=== PATIENT | male | born 1965 | race Caucasian/White ===

== ENCOUNTER 2016-11-09 10:43 | Observation (INO) | payer BC, OTHER ==
[~2016-11-09] VITALS: Ht 180.3 cm; Wt 91.3 kg
[~2016-11-09 10:43] MED LIST: META1TAB22 PO; TRAM-10 PO; norco
[2016-11-09] MEDS ORDERED: ASPIRIN 81 MG CHEW PO STA (11:28)
[2016-11-09] MEDS ORDERED: PANTOprazole SOD 40 MG TAB PO STA (11:28)
[2016-11-09 11:42] LABS: BASO % 0.3 %; BASO ABS # 0.03 K/uL (0-0.2); COMPLETE YES; EOS % 2.7 %; HEMATOCRIT 44.6 % (42-52); IG% 0.8 %; LYMPH % 28.1 %; LYMPH ABS # 3.07 K/uL (1.2-3.4); MEAN CELL VOLUME 90.5 fL (80-100); MEAN CORPUSCULAR HEMOGLOBIN 31.4 pg (25-34); MEAN CORPUSCULAR HGB CONC 34.8 g/dl (32-36); MEAN PLATELET VOLUME 10.8 fL (7.4-10.4); MONO % 11.6 %; NEUT % 56.5 %; PLATELET COUNT 230 K/uL (130-400); RED BLOOD COUNT 4.93 M/uL (4.7-6.1); WHITE BLOOD COUNT 10.94 K/uL (4.8-10.8)
--- NOTE | 2016-11-09 11:49 | EMERGENCY ROOM VISIT NOTE ---
History Report prepared by Deanna: Ildefonso Montes Under the Supervision of: Dr. Anatoliy Perez D.O. First contact with patient: 11:23 Chief Complaint: SHORTNESS OF BREATH Stated Complaint: SOB Nursing Triage Summary: pt c/o sob strated approx 2 weeks ago agter last snow intermittent and worsens with exertion feels in back and chest when takes deep breath states chest pain after eating with relieved with antiacid History of Present Illness The patient is a 51 year old male who presents to the Emergency Room with complaints of on and off shortness of breath for the past two weeks. The patient states that two weeks ago he was shoveling snow, and he had shortness of breath more than usual. The he states that a few days ago he was working outside, and he got short of breath, and he states that last night he was just watching TV, and he would have to take deep breaths every couple of minutes. He states that he has some chest discomfort usually after eating, however when he takes Tums the pain goes away quickly. He additionally states that he has some back discomfort. He denies any arm pain, leg pain or swelling., abdominal pain, nausea, and vomiting. The patient states that his head feels stuffy. The patient states that he currently smokes about 5 cigarettes per day. The patient denies any significant medical history, and he states that he has a surgical history of back surgery, and he does not have a family history of heart disease. Source of History: patient Onset: two weeks ago Timing: other (on and off) Modifying Factors (Worsening): exertion Associated Symptoms: + chest pain, No abdominal pain, No nausea, No vomiting Review of Systems See HPI for pertinent positives & negatives. A total of 10 systems reviewed and were otherwise negative. Past Medical & Surgical Medical Problems: (1) Skin carcinoma Surgical Problems: (1) H/O arthroscopy of left knee (2) H/O laminectomy Family History Cancer Social History Smoking Status: Current Every Day Smoker Marital Status: Housing Status: lives with family Occupation Status: employed Current/Historical Medications No Active Prescriptions or Reported Meds Allergies Coded Allergies: No Known Allergies (Unverified , 11/09/16) Physical Exam Vital Signs Date Time Temp Pulse Resp B/P Pulse Ox O2 Delivery O2 Flow Rate FiO2 11/09/16 13:09 37.0 18 114/79 Room Air 11/09/16 12:56 53 18 114/79 98 Room Air 11/09/16 11:48 53 11/09/16 11:32 96 Room Air 11/09/16 11:30 58 16 143/68 96 Room Air 11/09/16 11:25 96 Room Air 11/09/16 11:05 97 Room Air 11/09/16 11:05 37.0 60 18 133/83 97 Room Air Physical Exam GENERAL: Patient is awake, alert, and in no acute distress. Patient is resting comfortably and showing no signs of anxiety EYES: The conjunctivae are clear. The pupils are round and reactive. EARS, NOSE, MOUTH AND THROAT: The nose is without any evidence of any deformity. Mucous membranes are moist tongue is midline NECK: The neck is nontender and supple. RESPIRATORY: Normal respiratory effort is noted there is no evidence of wheezing rhonchi or rales CARDIOVASCULAR: Regular rate and rhythm noted there no murmurs rubs or gallops normal S1 normal S2 GASTROINTESTINAL: The abdomen is soft. Bowel sounds are present in all quadrants. Abdomen is nontender MUSCULOSKELETAL/EXTREMITIES: There is no evidence of gross deformity full range of motion is noted in the hips and shoulders SKIN: There is no obvious evidence of any rash. There are no petechiae, pallor or cyanosis noted. NEUROLOGIC: Patient is awake alert and oriented x3 Medical Decision & Procedures ER Provider Diagnostic Interpretation: X-ray results as stated below per interpretation by me and the radiologist. CHEST ONE VIEW PORTABLE CLINICAL HISTORY: Shortness of breath, respiratory distress. COMPARISON STUDY: 11/11/2013 FINDINGS: The cardiac and mediastinal contours are normal. There is no evidence of focal pulmonary consolidation. There is no evidence of failure. No pleural effusions are visualized.[ IMPRESSION: No active disease in the chest. Electronically signed by: Yobani Wolff M.D. 11/09/2016 11:56 AM Dictated Date/Time: 11/09/2016 11:56 AM Laboratory Results 11/09/16 11:25 Red Blood Count 4.93, Mean Corpuscular Volume 90.5, Mean Corpuscular Hemoglobin 31.4, Mean Corpuscular Hemoglobin Concent 34.8, Mean Platelet Volume 10.8, Neutrophils (%) (Auto) 56.5, Lymphocytes (%) (Auto) 28.1, Monocytes (%) (Auto) 11.6, Eosinophils (%) (Auto) 2.7, Basophils (%) (Auto) 0.3, Neutrophils # (Auto ) 6.19, Lymphocytes # (Auto) 3.07, Monocytes # (Auto) 1.27, Eosinophils # (Auto ) 0.29, Basophils # (Auto) 0.03 11/09/16 11:25 Test 11/09/16 11:25 White Blood Count 10.94 K/uL (4.8-10.8) Red Blood Count 4.93 M/uL (4.7-6.1) Hemoglobin 15.5 g/dL (14.0-18.0) Hematocrit 44.6 % (42-52) Mean Corpuscular Volume 90.5 fL (80-100) Mean Corpuscular Hemoglobin 31.4 pg (25-34) Mean Corpuscular Hemoglobin Concent 34.8 g/dl (32-36) Platelet Count 230 K/uL (130-400) Mean Platelet Volume 10.8 fL (7.4-10.4) Neutrophils (%) (Auto) 56.5 % Lymphocytes (%) (Auto) 28.1 % Monocytes (%) (Auto) 11.6 % Eosinophils (%) (Auto) 2.7 % Basophils (%) (Auto) 0.3 % Neutrophils # (Auto) 6.19 K/uL (1.4-6.5) Lymphocytes # (Auto) 3.07 K/uL (1.2-3.4) Monocytes # (Auto) 1.27 K/uL (0.11-0.59) Eosinophils # (Auto) 0.29 K/uL (0-0.5) Basophils # (Auto) 0.03 K/uL (0-0.2) RDW Standard Deviation 42.4 fL (36.4-46.3) RDW Coefficient of Variation 12.9 % (11.5-14.5) Immature Granulocyte % (Auto) 0.8 % Immature Granulocyte # (Auto) 0.09 K/uL (0.00-0.02) Prothrombin Time 10.1 SECONDS (9.0-12.0) Prothromb Time International Ratio 0.9 (0.9-1.1) Activated Partial Thromboplast Time 27.7 SECONDS (21.0-31.0) Partial Thromboplastin Ratio 1.1 Anion Gap 9.0 mmol/L (3-11) Est Creatinine Clear Calc Drug Dose 101.7 ml/min Estimated GFR () 100.6 Estimated GFR (Non- 86.8 BUN/Creatinine Ratio 14.8 (10-20) Calcium Level 9.1 mg/dl (8.5-10.1) Total Bilirubin 0.5 mg/dl (0.2-1) Aspartate Amino Transf (AST/SGOT) 14 U/L (15-37) Alanine Aminotransferase (ALT/SGPT) 26 U/L (12-78) Alkaline Phosphatase 59 U/L (45-117) Total Protein 7.4 gm/dl (6.4-8.2) Albumin 3.7 gm/dl (3.4-5.0) Globulin 3.7 gm/dl (2.5-4.0) Albumin/Globulin Ratio 1.0 (0.9-2) Laboratory results per my review. Medications Administered Medications (Trade) Dose Ordered Sig/Evan Route Start Time Stop Time Status Last Admin Dose Admin Aspirin (Aspirin Chew) 324 mg NOW STAT PO 11/09/16 11:28 11/09/16 11:30 DC 11/09/16 11:36 324 MG Pantoprazole Sodium (Protonix Tab) 40 mg NOW STAT PO 11/09/16 11:28 11/09/16 11:30 DC 11/09/16 11:36 40 MG ECG Indication: chest pain Rate (beats per minute): 53 Rhythm: sinus bradycardia Findings: no ectopy, other (Inferior T-wave abnormality noted) Comparison ECG Date: 10/22/13 Change: T wave abnormality is new ED Course 1127: The patient was evaluated in room B5. A complete history and physical examination were performed. 1128: Protonix Tab 40mg PO, Aspirin 324mg PO 1218: I discussed the patient's case with Dr. Roa. He is going to evaluate the patient for further treatment Medical Decision Differential diagnosis: Etiologies such as cardiac ischemia, aortic dissection, pulmonary embolism, pneumonia, pneumothorax, musculoskeletal, infections, pericarditis, myocarditis , esophageal rupture, gastrointestinal, as well as others were entertained. Nursing notes reviewed. The patient is a 51-year-old male who presented to the emergency department for an evaluation of dyspnea on exertion. The patient also started noticing some chest discomfort with exertion but felt that this was relieved with antacids. The patient does not have a cardiac history. At this time he is pain-free. His EKG showed mild ST abnormalities. He was treated with aspirin in the emergency department. He continued to be pain-free I discussed the patient's laboratory and radiographic studies with him. His cardiac biomarkers were negative. I also discussed the limitations of the emergency apartment workup for chest pain with him. I discussed his case with the on-call [facility] hospitalist group. They have agreed to evaluate the patient in the emergency department for further management and disposition. Given the patient's description of his discomfort as well as his exertional symptoms I do feel this has a high likelihood of being cardiac in nature. Consults Time Called: 1214 Consulting Physician: Dr. Roa Returned Call: 1218 I discussed the patient's case with Dr. Roa. He is going to evaluate the patient for further treatment Impression Primary Impression: Left sided chest pain Additional Impressions: Dyspnea on exertion Abnormal ECG Scribe Attestation The scribe's documentation has been prepared under my direction and personally reviewed by me in its entirety. I confirm that the note above accurately reflects all work, treatment, procedures, and medical decision making performed by me. Departure Information Dispostion Being Evaluated By Hospitalist Prescriptions No Active Prescriptions or Reported Meds Referrals No Doctor, Assigned (PCP) Problem Qualifiers
--- NOTE | 2016-11-09 11:58 | DIAGNOSTIC IMAGING REPORT ---
CHEST ONE VIEW PORTABLE CLINICAL HISTORY: Shortness of breath, respiratory distress. COMPARISON STUDY: 11/11/2013 FINDINGS: The cardiac and mediastinal contours are normal. There is no evidence of focal pulmonary consolidation. There is no evidence of failure. No pleural effusions are visualized.[ IMPRESSION: No active disease in the chest. Electronically signed by: Yobani Wolff M.D. 11/09/2016 11:56 AM Dictated Date/Time: 11/09/2016 11:56 AM
[2016-11-09 12:00] LABS: INR 0.9 (0.9-1.1); PARTIAL THROMBOPLASTIN RATIO 1.1; PROTHROMBIN TIME (PATIENT) 10.1 SECONDS (9.0-12.0)
[2016-11-09 12:05] LABS: ALT/SGPT 26 U/L (12-78); AST/SGOT 14 U/L (15-37); BLOOD UREA NITROGEN 15 mg/dl (7-18); BUN/CREATININE RATIO 14.8 (10-20); CALCIUM 9.1 mg/dl (8.5-10.1); CARBON DIOXIDE 24 mmol/L (21-32); CHLORIDE 105 mmol/L (98-107); GLUCOSE 85 mg/dl (70-99); POTASSIUM 4.2 mmol/L (3.5-5.1); SODIUM 138 mmol/L (136-145)
[2016-11-09 12:09] LABS: ALKALINE PHOSPHATASE 59 U/L (45-117)
[2016-11-09 13:09] VITALS: BP 114/79; TEMP 37; Ht 180.3 cm; Wt 91.3 kg
[2016-11-09] MEDS ORDERED: ONDANSETRON INJ 2 MG/ML 2 ML VIAL IV PRN (13:45)
[2016-11-09] MEDS ORDERED: ACETAMINOPHEN 325 MG TAB PO PRN (13:45)
[2016-11-09] MEDS ORDERED: NITROGLYCERIN 0.4 MG SL PER TAB CHARGE SL PRN (13:45)
[2016-11-09] MEDS ORDERED: INFLUENZA ADMINISTRATION CHARGE ONE (14:15)
[2016-11-09] MEDS ORDERED: IV FLUIDS COMPLETED PRN (14:15)
[2016-11-09] MEDS ORDERED: INFLUENZA VIRUS QUAD VACCINE 0.5 ML SYR IM. ONE (14:15)
[2016-11-09 15:20] VITALS: BP 121/75; PULSE 55; TEMP 37; O2SAT 95
[2016-11-09 15:44] VITALS: BP 120/74; PULSE 83; TEMP 36.9; O2SAT 94
--- NOTE | 2016-11-09 16:12 | History and Physical ---
History & Physical Date & Time of Service: Nov 09, 2016 at 15:36 Chief Complaint: Shortness of Breath on Exertion Primary Care Physician: Will Chamorro M.D. History of Present Illness 51 year old male who presents to the ER with shortness of breath on exertion. Patient reports he first noted the shortness of breath about two weeks ago when he shoveling snow. 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 He reports he has never felt short of breath with exertion before. He notes the shortness of breath has been progressively getting worse. He is now short of breath with climbing a flight of stairs. He reports two episodes of chest pain. He reports they were located in the lower left chest and were both after eating. TUMS resolved the discomfort. He denies chest pain associated with the exertional shortness of breath. No lightheadedness, dizziness, or diaphoresis. He denies abdominal pain , nausea, and vomiting. No fever or chills. He denies any urinary symptoms. In the ER, patient's initial troponin is negative and EKG does not show any acute ST changes. Labs are unremarkable and vitals are stable. Past Medical/Surgical History Surgical Problems: (1) H/O arthroscopy of left knee Status: Chronic (2) H/O laminectomy Status: Chronic Family History FH: alpha 1 antitrypsin deficiency FATHER Social History Smoking Status: Current Every Day Smoker Alcohol Use: occasionally Immunizations History of Tetanus Vaccine?: Yes Tetanus Immunization Date: Sep 09, 2014 Multi-Drug Resistant Organisms History of MDRO: No Allergies Coded Allergies: No Known Allergies (Unverified , 11/09/16) Home Medications No Active Prescriptions or Reported Meds Review of Systems 10 point review of systems was completed with the pertinent positives and negatives noted per the HPI Physical Exam Vital Signs Date Time Temp Pulse Resp B/P Pulse Ox O2 Delivery O2 Flow Rate FiO2 11/09/16 15:21 37.0 55 18 121/75 95 11/09/16 15:20 37.0 55 18 95 11/09/16 14:05 55 18 121/75 95 Room Air 11/09/16 13:09 37.0 18 114/79 Room Air 11/09/16 12:56 53 18 114/79 98 Room Air 11/09/16 11:48 53 11/09/16 11:32 96 Room Air 11/09/16 11:30 58 16 143/68 96 Room Air 11/09/16 11:25 96 Room Air 11/09/16 11:05 97 Room Air 11/09/16 11:05 37.0 60 18 133/83 97 Room Air General Appearance: no apparent distress Head: normocephalic Eyes: normal inspection ENT: hearing grossly normal Neck: supple, no JVD Respiratory/Chest: lungs clear, normal breath sounds, no respiratory distress Cardiovascular: regular rate, rhythm, no edema, normal peripheral pulses Abdomen/GI: normal bowel sounds, non tender, soft Extremities/Musculoskelatal: normal inspection, no calf tenderness Neurologic/Psych: no motor/sensory deficits, alert, normal mood/affect, oriented x 3 Skin: normal color, warm/dry Diagnostics Laboratory Results Results Past 24 Hours Test 11/09/16 11:25 Range/Units White Blood Count 10.94 4.8-10.8 K/uL Red Blood Count 4.93 4.7-6.1 M/uL Hemoglobin 15.5 14.0-18.0 g/dL Hematocrit 44.6 42-52 % Mean Corpuscular Volume 90.5 80-100 fL Mean Corpuscular Hemoglobin 31.4 25-34 pg Mean Corpuscular Hemoglobin Concent 34.8 32-36 g/dl Platelet Count 230 130-400 K/uL Mean Platelet Volume 10.8 7.4-10.4 fL Neutrophils (%) (Auto) 56.5 % Lymphocytes (%) (Auto) 28.1 % Monocytes (%) (Auto) 11.6 % Eosinophils (%) (Auto) 2.7 % Basophils (%) (Auto) 0.3 % Neutrophils # (Auto) 6.19 1.4-6.5 K/uL Lymphocytes # (Auto) 3.07 1.2-3.4 K/uL Monocytes # (Auto) 1.27 0.11-0.59 K/uL Eosinophils # (Auto) 0.29 0-0.5 K/uL Basophils # (Auto) 0.03 0-0.2 K/uL RDW Standard Deviation 42.4 36.4-46.3 fL RDW Coefficient of Variation 12.9 11.5-14.5 % Immature Granulocyte % (Auto) 0.8 % Immature Granulocyte # (Auto) 0.09 0.00-0.02 K/uL Prothrombin Time 10.1 9.0-12.0 SECONDS Prothromb Time International Ratio 0.9 0.9-1.1 Activated Partial Thromboplast Time 27.7 21.0-31.0 SECONDS Partial Thromboplastin Ratio 1.1 Sodium Level 138 136-145 mmol/L Potassium Level 4.2 3.5-5.1 mmol/L Chloride Level 105 98-107 mmol/L Carbon Dioxide Level 24 21-32 mmol/L Anion Gap 9.0 3-11 mmol/L Blood Urea Nitrogen 15 7-18 mg/dl Creatinine 1.00 0.60-1.40 mg/dl Est Creatinine Clear Calc Drug Dose 101.7 ml/min Estimated GFR () 100.6 Estimated GFR (Non- 86.8 BUN/Creatinine Ratio 14.8 10-20 Random Glucose 85 70-99 mg/dl Calcium Level 9.1 8.5-10.1 mg/dl Total Bilirubin 0.5 0.2-1 mg/dl Aspartate Amino Transf (AST/SGOT) 14 15-37 U/L Alanine Aminotransferase (ALT/SGPT) 26 12-78 U/L Alkaline Phosphatase 59 45-117 U/L Troponin I < 0.015 0-0.045 ng/ml Total Protein 7.4 6.4-8.2 gm/dl Albumin 3.7 3.4-5.0 gm/dl Globulin 3.7 2.5-4.0 gm/dl Albumin/Globulin Ratio 1.0 0.9-2 Diagnostic Radiology CXR IMPRESSION: No active disease in the chest. Impression Assessment and Plan DYSPNEA ON EXERTION - admit to tele - patient presenting with increasing dyspnea on exertion for the past two weeks - had a couple episodes of atypical chest pain relieved with TUMS - risk factors: tobacco use - initial troponin negative, EKG shows new T-wave inversions in lead III and new downward deflection in III and AVF - resting echo tonight and if no acute findings, will complete stress portion in AM DVT PROPHYLAXIS - SCDs DISPO - The patient will be placed as observation status for now until further work up is complete. 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 Y/N: Yes Risk Level: Low Note ATTENDING ADDENDUM Record reviewed. Patient interviewed and examined. Care coordinated with SMITA Velasco. Please refer to her documentation for patient's history. Briefly, 51 YO male experiencing worsening dyspnea on exertion over past few weeks. No history of cardiovascular disease. Smokes. 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 EXAM: General- no distress VS- as noted Neck- no JVD Lungs- clear Heart- RRR, no murmur or gallop Abdomen- + BS, soft, nontender Extremities- no pretibial edema or calf tenderness Neuro- alert DATA: Troponin < 0.015. Other lab studies as noted. Chest x-ray negative. EKG performed at 11:18 reviewed and demonstrated SB at 53 / minute, inverted T- waves III. ASSESSMENT AND PLAN: Recent onset dyspnea on exertion, etiology uncertain. Consider ischemic heart disease, cardiomyopathy, pulmonary disease. Check serial cardiac markers and lipids. Check rest echo. If acute NV ruled out, check stress echo. If cardiac work-up unrevealing, consider outpatient PFT's. Smoking cessation counseling. Please refer to JEREMY Barahona's documentation for discussion of other issues. Isaiah Roa MD .
[2016-11-09 19:24] VITALS: BP 134/77; PULSE 58; TEMP 37.3; O2SAT 98
[2016-11-09 20:05] VITALS: O2SAT 98
[2016-11-09 23:06] VITALS: BP 117/76; PULSE 55; TEMP 37; O2SAT 97
[2016-11-10 04:00] VITALS: BP 108/68; PULSE 55; TEMP 37; O2SAT 96
[2016-11-10 07:45] LABS: HEMATOCRIT 44.9 % (42-52); MEAN CORPUSCULAR HGB CONC 34.7 g/dl (32-36); MEAN PLATELET VOLUME 10.8 fL (7.4-10.4); PLATELET COUNT 204 K/uL (130-400); RED BLOOD COUNT 4.88 M/uL (4.7-6.1); WHITE BLOOD COUNT 10.63 K/uL (4.8-10.8)
[2016-11-10 08:03] VITALS: BP 109/68; PULSE 55; TEMP 36.6; O2SAT 97
[2016-11-10 08:28] LABS: BUN/CREATININE RATIO 17.8 (10-20); CALCIUM 8.6 mg/dl (8.5-10.1); CREATININE 0.95 mg/dl (0.60-1.40); POTASSIUM 4.1 mmol/L (3.5-5.1)
[2016-11-10 08:34] LABS: CHOLESTEROL/HDL RATIO 3.7
[2016-11-10] MEDS ORDERED: ASPIRIN 81 MG ECTAB PO SCH (09:00)
--- NOTE | 2016-11-10 09:51 | EXERCISE STRESS ECHO ---
*NOTICE TO RECEIVING REPUBLICAN AGENCY This information is strictly Confidential and protected under [place] law. [place] law prohibits you from making any further disclosure of this information unless further disclosure is expressly permitted by the written consent of the person to whom it pertains or is authorized by law. A general authorization for the release of medical or other information is not sufficient for this purpose. Hospital accepts no responsibility if the information is made available to any other person, INCLUDING THE PATIENT. Interpretation Summary * Name: LUANNE VARELA Study Date: 11/10/2016 07:31 AM BP: 122/61 mmHg * Patient Location: [facility] HR: 54 * : 1965 (M/d/yyyy) Gender: Male Height: 71 in * Age: 51 yrs Ethnicity: CA Weight: 204 lb * Ordering Physician: Megan Barahona * Referring Physician: Self, Referred * Performed By: Leanna Varela RCS * * Reason For Study: CHEST PAIN * BSA: 2.1 m2 * -- Conclusions -- * STRESS STUDY: * Normal exercise stress echocardiogram. * No echocardiographic or ECG evidence of myocardial ischemia having achieved heart rate adequate for diagnostic purposes. * The patient's exercise capacity is above average. * RESTING STUDY: * There is no significant valvular heart disease. Procedure Details * ECHOEX, CPT #[id number] * ECHO COLOR FLOW, CPT #[id number] * ECHO DOPPLER, CPT #[id number] * TST, CPT #[id number] Left Ventricle * The left ventricle is normal in size. * There is no thrombus. * There is normal left ventricular wall thickness. * Left ventricular systolic function is normal. * Ejection Fraction = 55-60%. * Resting wall motion: Normal. Stress wall motion: Appropriate increase in Left ventricular systolic function and decrease in cavity size. No stress induced segmental wall motion abnormalities. Right Ventricle * The right ventricle is normal in size and function. Atria * The left atrial size is normal. * Right atrial size is normal. * No ASD detected; PFO is not assessed. Mitral Valve * The mitral valve is normal in structure and function. * There is no mitral valve stenosis. * Significant mitral regurgitation is absent. Tricuspid Valve * The tricuspid valve anatomy is normal. * There is no tricuspid stenosis. * Significant tricuspid regurgitation is absent. Aortic Valve * The aortic valve is normal in structure and function. * No hemodynamically significant valvular aortic stenosis. * There is no significant aortic regurgitation. Pulmonic Valve * The pulmonic valve is not well visualized. Great Vessels * The aortic root is normal size. Pericardium * There is no pericardial effusion. Stress Parameters * Normal baseline electrocardiogram. * The baseline ECG displays normal sinus rhythm. * The stress ECG response was normal * No arrhythmia were noted with stress. * Stress ECG: No ST changes. No arrhythmias. * The stress portion of this study was personally supervised by the undersigned interpreting physician. * Rest heart rate was '54' BPM. * Rest blood pressure was '122/61' * Maximum heart rate achieved was 160 bpm. * Maximum heart rate was 94 % of maximum age-predicted heart rate. * Maximum blood pressure was '211/74' * Total exercise time was '09:01' * Maximum exercise MET level achieved was '10.10' METS * Maximum treadmill speed was '3.40' miles per hour. * Maximum treadmill elevation was '14.00'% grade. Left Ventricular Diastolic Function * Grade I diastolic dysfunction, (abnormal relaxation pattern). MMode 2D Measurements and Calculations IVSd 1.1 cm IVSs 1.6 cm LVIDd 4.5 cm LVIDs 3.2 cm LVPWd 1.0 cm LVPWs 1.3 cm IVS/LVPW 1.0 FS 28.6 % EDV(Teich) 93.4 ml ESV(Teich) 41.8 ml EF(Teich) 55.3 % EDV(cubed) 92.3 ml ESV(cubed) 33.6 ml EF(cubed) 63.7 % % IVS thick 48.8 % % LVPW thick 23.7 % LV mass(C)d 165.4 grams LV mass(C)dI 77.8 grams/m\S\2 LV mass(C)s 160.8 grams LV mass(C)sI 75.6 grams/m\S\2 SV(Teich) 51.7 ml SI(Teich) 24.3 ml/m\S\2 SV(cubed) 58.8 ml SI(cubed) 27.6 ml/m\S\2 Ao root diam 3.5 cm Ao root area 9.7 cm\S\2 LA dimension 2.7 cm LA/Ao 0.78 LVOT diam 2.0 cm LVOT area 3.1 cm\S\2 LVAd ap4 35.1 cm\S\2 LVLd ap4 8.9 cm EDV(MOD-sp4) 112.4 ml EDV(sp4-el) 116.9 ml LVAs ap4 21.8 cm\S\2 LVLs ap4 7.7 cm ESV(MOD-sp4) 53.8 ml ESV(sp4-el) 52.2 ml EF(MOD-sp4) 52.2 % EF(sp4-el) 55.4 % LVAd ap2 31.3 cm\S\2 LVLd ap2 8.4 cm EDV(MOD-sp2) 99.0 ml EDV(sp2-el) 99.0 ml LVAs ap2 19.4 cm\S\2 LVLs ap2 6.9 cm ESV(MOD-sp2) 46.5 ml ESV(sp2-el) 46.6 ml EF(MOD-sp2) 53.1 % EF(sp2-el) 52.9 % LVLd %diff -6.61 % EDV(MOD-bp) 103.2 ml LVLs %diff -12.51 % ESV(MOD-bp) 52.0 ml EF(MOD-bp) 49.7 % SV(MOD-sp4) 58.6 ml SI(MOD-sp4) 27.6 ml/m\S\2 SV(MOD-sp2) 52.5 ml SI(MOD-sp2) 24.7 ml/m\S\2 SV(MOD-bp) 51.3 ml SI(MOD-bp) 24.1 ml/m\S\2 SV(sp4-el) 64.7 ml SI(sp4-el) 30.4 ml/m\S\2 SV(sp2-el) 52.4 ml SI(sp2-el) 24.6 ml/m\S\2 Doppler Measurements and Calculations MV E max juana 49.5 cm/sec MV A max juana 47.5 cm/sec MV E/A 1.0 MV P1/2t max juana 75.6 cm/sec MV P1/2t 107.7 msec MVA(P1/2t) 2.0 cm\S\2 MV dec slope 205.6 cm/sec\S\2 MV dec time 0.51 sec Ao V2 max 128.6 cm/sec Ao max PG 6.6 mmHg Ao max PG (full) 3.3 mmHg RYANE(V,A) 2.2 cm\S\2 RAYNE(V,D) 2.2 cm\S\2 LV V1 max PG 3.3 mmHg LV V1 max 90.7 cm/sec PA V2 max 101.8 cm/sec PA max PG 4.1 mmHg
--- NOTE | 2016-11-10 10:44 | Discharge Instructions ---
Discharge Instructions Admission Reason for Admission: Dyspnea On Exertion Discharge Discharge Diagnosis / Problem: Shortness of breath on exertion Discharge Goals Goal(s): Diagnostic testing Activity Recommendations Activity Limitations: resume your previous activity . Instructions / Follow-Up Instructions / Follow-Up Please follow up with Family Medicine Dr. Chamorro on November 14 at 11:10am. Please discuss with Dr. Chamorro setting up pulmonary function tests at your follow up appointment. Please quit smoking. Current Hospital Diet Patient's current hospital diet: AHA Diet (Heart Healthy) Discharge Diet Recommended Diet: AHA Diet (Heart Healthy) Pending Studies Studies pending at discharge: no Laboratory Results Lipid Panel Test 11/10/16 07:31 Range/Units Triglycerides Level 109 0-150 mg/dl Cholesterol Level 175 0-200 mg/dl HDL Cholesterol 47 mg/dl Cholesterol/HDL Ratio 3.7 LDL Cholesterol, Calculated 106 mg/dl Work Instructions Additional Instructions: Please excuse Mr. Strauss from work duties from 11/09/16 through 11/10/16 due to hospitalization. Medical Emergencies . Who to Call and When: Medical Emergencies: If at any time you feel your situation is an emergency, please call 911 immediately. . Non-Emergent Contact Non-Emergency issues call your: Primary Care Provider . . "Provider Documentation" section prepared by Naomi Montaño. VTE Core Measure Inpt VTE Proph given/why not?: SCD's
[2016-11-10 11:23] VITALS: BP 109/68; PULSE 55; TEMP 36.6; O2SAT 97
[2016-11-10 11:32] VITALS: BP 118/75; PULSE 61; TEMP 36.8; O2SAT 97
--- NOTE | 2016-11-10 19:08 | Discharge Summary ---
Discharge Summary Date of Service Nov 10, 2016. Discharge Summary Admission Date: Nov 09, 2016 at 13:43 Discharge Date: Nov 10, 2016 Discharge Disposition: Home Principal Diagnosis: Dyspnea Procedures: Dobutamine stress echo * STRESS STUDY: * Normal exercise stress echocardiogram. * No echocardiographic or ECG evidence of myocardial ischemia having achieved heart rate adequate for diagnostic purposes. * The patient's exercise capacity is above average. * RESTING STUDY: * There is no significant valvular heart disease. Medication Reconciliation Medication Profile: No Active Prescriptions or Reported Meds Admission Information HPI (per Admitting provider): 51 year old male who presents to the ER with shortness of breath on exertion. Patient reports he first noted the shortness of breath about two weeks ago when he shoveling snow. 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 He reports he has never felt short of breath with exertion before. He notes the shortness of breath has been progressively getting worse. He is now short of breath with climbing a flight of stairs. He reports two episodes of chest pain. He reports they were located in the lower left chest and were both after eating. TUMS resolved the discomfort. He denies chest pain associated with the exertional shortness of breath. No lightheadedness, dizziness, or diaphoresis. He denies abdominal pain , nausea, and vomiting. No fever or chills. He denies any urinary symptoms. In the ER, patient's initial troponin is negative and EKG does not show any acute ST changes. Labs are unremarkable and vitals are stable. Physical Exam (per Admitting): General Appearance: no apparent distress Head: normocephalic Eyes: normal inspection ENT: hearing grossly normal Neck: supple, no JVD Respiratory/Chest: lungs clear, normal breath sounds, no respiratory distress Cardiovascular: regular rate, rhythm, no edema, normal peripheral pulses Abdomen/GI: normal bowel sounds, non tender, soft Extremities/Musculoskelatal: normal inspection, no calf tenderness Neurologic/Psych: no motor/sensory deficits, alert, normal mood/affect, oriented x 3 Skin: normal color, warm/dry Hospital Course Patient was admitted with dyspnea. ACS r/o was negative. Dobutamine stress echo was normal. CXR was normal. Patient was deemed stable for discharge with Family Medicine follow up. Discussed with patient outpatient PFT's to assess lung function given smoking history and environmental/work exposure history. PE on discharge: General- awake; alert; NAD Eyes- EOMI; no scleral icterus Neck- no stridor; trachea midline Lungs- CTA bilaterally; no wheezes/crackles Heart- RRR; no m/r/g Abdomen- soft; NTND; nBS Back- no gross abnormalities Extremities- no c/c/e; no deformity Neuro- no gross focal deficits Skin- no appreciable rash or bruise . Total time spent on discharge = This includes examination of the patient, discharge planning, medication reconciliation, and communication with other providers. Discharge Instructions Discharge Instructions Admission Reason for Admission: Dyspnea On Exertion Discharge Discharge Diagnosis / Problem: Shortness of breath on exertion Discharge Goals Goal(s): Diagnostic testing Activity Recommendations Activity Limitations: resume your previous activity . Instructions / Follow-Up Instructions / Follow-Up Please follow up with Family Medicine Dr. Chamorro on November 14 at 11:10am. Please discuss with Dr. Chamorro setting up pulmonary function tests at your follow up appointment. Please quit smoking. Current Hospital Diet Patient's current hospital diet: AHA Diet (Heart Healthy) Discharge Diet Recommended Diet: AHA Diet (Heart Healthy) Pending Studies Studies pending at discharge: no Laboratory Results Lipid Panel Test 11/10/16 07:31 Range/Units Triglycerides Level 109 0-150 mg/dl Cholesterol Level 175 0-200 mg/dl HDL Cholesterol 47 mg/dl Cholesterol/HDL Ratio 3.7 LDL Cholesterol, Calculated 106 mg/dl Work Instructions Additional Instructions: Please excuse Mr. Strauss from work duties from 11/09/16 through 11/10/16 due to hospitalization. Medical Emergencies . Who to Call and When: Medical Emergencies: If at any time you feel your situation is an emergency, please call 911 immediately. . Non-Emergent Contact Non-Emergency issues call your: Primary Care Provider . . "Provider Documentation" section prepared by Naomi Montaño. VTE Core Measure Inpt VTE Proph given/why not?: SCD's Additional Copies To Will Chamorro M.D.
== END 2016-11-10 11:30 | disposition home or self-care (01) ==
LOC: ENRESERVTM → ENRESERVDT → C.EDB 10:45 → C.EDINP 13:43 → C.MED 15:42
PROVIDERS: ADMIT Hospitalist; ATTEND Internal Medicine
DX: R06.00 Dyspnea, unspecified (principal); F17.210 Nicotine dependence, cigarettes, uncomplicated; R94.31 Abnormal electrocardiogram [ECG] [EKG]; Z85.828 Personal history of other malignant neoplasm of skin

== ENCOUNTER 2018-12-28 07:20 | Inpatient (IN) ==
--- NOTE | 2018-11-27 09:05 | PAT Medication Instructions ---
Medication Instructions Date of Service November 27, 2018 Home Medications diclofenac sodium 75 mg PO BID hydrocodone-acetaminophen 1 tab PO Q6H NEEDED omeprazole 20 mg PO QAM ranitidine HCl 150 mg PO BID ASK your surgeon for instructions diclofenac sodium 75 mg PO BID Take morning of surgery With a small sip of water, OTHERWISE NOTHING TO EAT OR DRINK AFTER MIDNIGHT: hydrocodone-acetaminophen 1 tab PO Q6H NEEDED omeprazole 20 mg PO QAM ranitidine HCl 150 mg PO BID Take evening before surgery hydrocodone-acetaminophen 1 tab PO Q6H NEEDED ranitidine HCl 150 mg PO BID Other Notes If you have any questions please call us at [phone] or [phone] or [phone] or [phone]
--- NOTE | 2018-11-27 10:35 | Anesthesiology Consultation ---
Date of Service November 27, 2018 Assessment & Plan (1) Encounter for pre-operative examination: Chart Review Chart Review: Acceptable Risk for Surgery and Patient seen in Pre Admission Testing Consults Requested none Teaching & Discussion Pre-Anesthesia Teaching/Discussion Notes: Instructed NPO after midnight before surgery, except medications with 15 cc of water. Medication instructions provided according to the PAT guidelines. History Surgery Operation Date: 12/28/18 12:00 Proposed Procedures p Right Anterior Total Hip Arthroplasty - Alberto Alba DO Height/Weight Height: 5 ft 10.5 in Weight: 95.4 kg Allergies Allergy/AdvReac Type Severity Reaction Status Date / Time bee venom protein (honey bee) Allergy Severe Anaphylaxis Verified 11/21/18 11:03 Medications Home Medications Medication Instructions Recorded Confirmed Last Taken diclofenac sodium 75 mg PO BID 11/21/18 11/21/18 Unknown hydrocodone-acetaminophen 1 tab PO Q6H PRN 11/21/18 11/21/18 Unknown omeprazole 20 mg PO QAM 11/21/18 11/21/18 Unknown ranitidine HCl 150 mg PO BID 11/21/18 11/21/18 Unknown Past Medical History Medical History Barretts esophagus Basal cell carcinoma GERD (gastroesophageal reflux disease) Osteoarthritis Sleep apnea CPAP Past Family History Family History Father Family hx of colon cancer Past Surgical History Surgical History History of arthroscopy LEFT KNEE History of colonoscopy History of esophagogastroduodenoscopy (EGD) History of laminectomy LUMBAR 11/18/13 - MAC #4, ETT #8.0, HiLo Oral with Grade 1 View. Smooth IV induction with atraumatic intubation. History of nasal septoplasty History of tonsillectomy History of tooth extraction Hx of vasectomy Past Anesthesia History No Hx of Anesthesia Complications and No Family Hx of Anesthesia Complications History of PONV No Motion Sickness Screening History of Motion Sickness: No (Not since childhood) Social History Smoking Status: Current every day smoker tobacco type: cigarettes Smoking cigarettes per day: 3-4 CIG DAILY (Advised) Do You Dip or Chew Tobacco: No Hx Alcohol Use: Yes Alcohol type: beer alcohol intake frequency: 3 or more drinks per day Alcohol Intake Frequency Comment: 3-4 BEERS DAILY Hx Substance Use: Yes substance use type: marijuana Last Used Substance Other:: End october Exercise / Class Metabolic Activity II 4-5 Yardwork/Stairs/Walk up hill (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 Denies CP or SOB. ) Review of Systems Patient denies chest pain, shortness of breath, dyspnea on exertion,cough, wheezing, palpitations. +Joint Pain (Hip) +Acid Reflux (Controlled by medications) Physical Exam Vital Signs BP: 116/75 P: 58 R: 16 T: 98.0 SPO2: 99% on RA ENMT Thyromental Distance: > or= 3.5 Finger Breadths (4+) Mallampati Class: II Neck normal visual inspection and trachea midline; neck extension not limited Respiratory normal respiratory effort Auscultation: lungs clear to auscultation bilaterally Cardiovascular Rate/Rhythm: regular rate and regular rhythm Heart Sounds: no murmur Vessels: no carotid bruit Neurologic moves all extremities Psychiatric Orientation: alert and oriented x 3 Testing Electrocardiogram Date: 11/27/18 Findings: + SB @ (59) and + no change from Chest X-Ray Date: 11/27/18 Findings: + NAD FINDINGS: Lung volumes are at the upper limits of normal. There is no consolidation or evidence for pulmonary edema. Cardiac size is normal. Medi astinal contours are normal. The appearance of the chest is unchanged. IMPRESSION: No acute cardiopulmonary findings. Stress Test Date: 11/10/16 Type: exercise Findings: + WNL Resting EF: 55-60% Resting RWMA: + none STRESS STUDY: Normal exercise stress echocardiogram. No echocardiographic or ECG evidence of myocardial ischemia having achieved heart rate adequate for diagnostic purposes. The patient's exercise capacity is above average. RESTING STUDY: There is no significant valvular heart disease. Maximum MET level achieved was 10.10 METS. Maximum HR achieved was 94% of MPHR. Total exercise time was 9:01. Grade I diastolic function (abnormal relaxation pattern). Laboratory Results 11/27/18 11:15 11/27/18 11:15 Blood Type O Positive 11/27/18 11:15 Antibody Screen POSITIVE A 11/27/18 11:15 PT 10.0 Seconds (9.0-12.0) 11/27/18 11:15 INR 1.0 (0.9-1.1) 11/27/18 11:15 APTT 29.1 Seconds (21.0-31.0) 11/27/18 11:15 Discussed +Antibodies with blood bank, who states that no further testing/actions are needed at this time.
--- NOTE | 2018-11-27 11:58 | XRay Report ---
XR chest Pre-admission PA/Lat CLINICAL HISTORY: Preoperative evaluation. COMPARISON STUDY: Chest radiograph November 09, 2016. FINDINGS: Lung volumes are at the upper limits of normal. There is no consolidation or evidence for p ulmonary edema. Cardiac size is normal. Mediastinal contours are normal. The appearance of the chest is unchanged. IMPRESSION: No acute cardiopulmonary findings. Electronically signed by: Salty Roth M.D. 11/27/2018 11:56 AM
[2018-11-27 12:36] LABS: Basophils # (auto) 0.03 K/uL (0-0.2); Basophils % (auto) 0.3 %; Eosinophils # (auto) 0.56 K/uL (0-0.5); Eosinophils % (auto) 5.9 %; Hematocrit (blood only) 42.8 % (42-52); Hemoglobin 14.6 g/dL (14.0-18.0); Immature Granulocytes # (auto) 0.04 K/uL (0.00-0.02); Immature Granulocytes % (auto) 0.4 %; Lymphocytes # (auto) 2.72 K/uL (1.2-3.4); Lymphocytes % (auto) 28.5 %; Mean Corpuscular Hgb Conc 34.1 g/dL (32-36); Mean Corpuscular Volume 92.4 fL (80-100); Mean Platelet Volume 10.5 fL (7.4-10.4); Monocytes # (auto) 0.85 K/uL (0.11-0.59); Monocytes % (auto) 8.9 %; Neutrophils # (auto) 5.33 K/uL (1.4-6.5); Platelet Count 264 K/uL (130-400); RDW Standard Deviation 47.5 fL (36.4-46.3); Red Blood Count 4.63 M/uL (4.7-6.1); White Blood Count 9.53 K/uL (4.8-10.8)
[2018-11-27 12:51] LABS: Partial Thromboplastin Ratio 1.1; Partial Thromboplastin Time 29.1 Seconds (21.0-31.0)
[2018-11-27 14:05] LABS: Calcium 8.7 mg/dl (8.5-10.1); Creatinine Clr Calc Pharmacy 107.4 ml/min; Est GFR (African American) 108.2; Est GFR (Non-African American) 93.4; Potassium 4.7 mmol/L (3.5-5.1)
--- NOTE | 2018-12-26 07:41 | History & Physical Report ---
Date of Service December 26, 2018 Assessment & Plan (1) Avascular necrosis of bone of right hip: We will proceed with a right anterior total hip arthroplasty. Postoperatively he will be placed on aspirin for DVT prophylaxis. He will be kept overnight in the hospital for postoperative medical management. Plans to go to outpatient physical therapy at [facility] upon discharge. 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 He is been having a 6-month history of right hip and groin pain. Sometimes it so bad that he can barely walk. X-rays were suggestive of avascular necrosis. An MRI confirmed the diagnosis. After failing conservative treatment, he elected to proceed with a right total hip arthroplasty. Allergies Allergy/AdvReac Type Severity Reaction Status Date / Time bee venom protein (honey bee) Allergy Severe Anaphylaxis Verified 11/21/18 11:03 Home Medications Home Medications Medication Instructions Recorded Confirmed Type diclofenac sodium 75 mg PO BID 11/21/18 11/21/18 History hydrocodone-acetaminophen 1 tab PO Q6H PRN 11/21/18 11/21/18 History omeprazole 20 mg PO QAM 11/21/18 11/21/18 History ranitidine HCl 150 mg PO BID 11/21/18 11/21/18 History Past Med/Surg History Medical History Barretts esophagus Basal cell carcinoma GERD (gastroesophageal reflux disease) Osteoarthritis Sleep apnea CPAP Surgical History History of arthroscopy LEFT KNEE History of colonoscopy History of esophagogastroduodenoscopy (EGD) History of laminectomy LUMBAR 11/18/13 - MAC #4, ETT #8.0, HiLo Oral with Grade 1 View. Smooth IV induction with atraumatic intubation. History of nasal septoplasty History of tonsillectomy History of tooth extraction Hx of vasectomy Family History Father Family hx of colon cancer Social History Preferred Language: Jordanian Communication Ability: Effective Burglar Alarm Installer Required: No Beliefs That Will Affect Care: None Current Living Situation: Spouse Other Information That Helps Us Care for You: No Feels Safe at Home: Yes Safety Concerns: Feels Safe At This Time Smoking Status: Current every day smoker Hx Alcohol Use: Yes Hx Substance Use: Yes Review of Systems All systems reviewed & are unremarkable except as noted in HPI & below Physical Exam Constitutional: WD/WN, vitals as above Eyes: PERRL, conjunctivae normal, anicteric sclerae ENMT: external ear and nose normal, oropharynx normal Neck: trachea midline, no thyromegaly Respiratory: normal respiratory effort Cardiovascular: RRR, no murmur, no edema Gastrointestinal (Abdomen): normal bowel sounds, soft, nontender, no hepatosplenomegaly Musculoskeletal: Physical examination of the right hip reveals decreased range of motion with flexion, internal and external rotation. There is significant groin pain with forced internal rotation of the hip his leg lengths are essentially equal. Psychiatric: A+Ox3, euthymic affect Results & Data Diagnostic Findings Radiographs of the right hip and pelvis demonstrate avascular necrosis of the right hip without significant collapse at this time. MRI of the right hip showed advanced avascular necrosis of the femoral head with impending collapse.
[~2018-12-28 07:20] MED LIST changes: +ACETAMINOPHEN 500 MG TAB PO SCH; +BUPIVACAINE 0.5 % 5 MG/1 ML PF 10ML VIAL ONE; +CEFAZOLIN 2000MG 2,000 MG/15 ML SYR IV SCH; +FAMOTIDINE 20 MG TAB PO SCH; +GABAPENTIN 300 MG PO SCH; +LR 500ML BOLUS, THEN 15ML/HR IV SCH; +LR 60ML/HR IV SCH; -META1TAB22 PO; +MIDAZOLAM HCL 1 MG/ML 2ML VIAL ONE; +ROPIVACAINE 0.5% HCL/PF 150 MG, BUPIVACAINE 0.5% MPF 30 ML, EPINEPHrine 30MG/30ML (OR U... INFIL SCH; -TRAM-10 PO; +TRANEXAMIC ACID 1,000 MG **IV Intra-op IV SCH; +TRANEXAMIC ACID 1,000 MG **IV Pre-op IV SCH; +fentaNYL citrate 100 MCG/2 ML VIAL ONE; -norco
--- NOTE | 2018-12-28 08:47 | History & Physical Bridge Note ---
Date of Service December 28, 2018 History & Physical Bridge Note I have examined the patient, reviewed the History & Physical and in the interval since the performance of the History & Physical I have noted the following changes of clinical significance: no changes noted
[2018-12-28] MEDS ORDERED: ORTHO JOINT ANESTHETIC ONE (09:20)
[2018-12-28] MEDS ORDERED: POVIDONE-IODINE OP SOLN 30 ML BTL ONE (09:20)
[2018-12-28] MEDS ORDERED: PHENYLEPHRINE 100MCG/ML 5ML SYR IV PRN (09:43)
[2018-12-28] MEDS ORDERED: HYDROmorphone INJ 1 MG/ML SYRINGE IV PRN (09:43)
[2018-12-28] MEDS ORDERED: ONDANSETRON INJ 2 MG/ML 2 ML VIAL IV PRN ×2 (09:43→13:25)
[2018-12-28] MEDS ORDERED: ATROPINE SULFATE 0.1 MG/ML 10ML SYR IV PRN (09:43)
[2018-12-28] MEDS ORDERED: KETOROLAC 30 MG/ML VIAL IV PRN (09:43)
[2018-12-28] MEDS ORDERED: ePHEDrine sulfate 50 MG/ML AMP IV PRN (09:43)
[2018-12-28] MEDS ORDERED: ePHEDrine sulfate 50 MG/ML SYR ONE (10:38)
[2018-12-28] MEDS ORDERED: PROPOFOL IV EMULSION 10 MG/ML 20 ML VIAL IV ONE (10:38)
[2018-12-28] MEDS ORDERED: LIDOCAINE HCL 2% 2 ML VIAL/AMP(20MG/ML) INFIL ONE (10:38)
[2018-12-28] MEDS ORDERED: ONDANSETRON INJ 2 MG/ML 2 ML VIAL ONE (10:38)
[2018-12-28] MEDS ORDERED: MIDAZOLAM HCL 1 MG/ML 2ML VIAL ONE (10:45)
--- NOTE | 2018-12-28 11:53 | Operative Report ---
Post Operative Report Pre & Post Diagnosis Operation Date: 12/28/18 09:50 Pre-Op Diagnosis: Right Hip Avascular Necrosis Post-Op Diagnosis: Right Hip Avascular Necrosis Procedure Operation Date: 12/28/18 09:50 Actual Procedures p Right Anterior Total Hip Arthroplasty(Right) - Alberto Alba DO Surgeon Alberto Alba DO Wheel Loader Operator Alberto Ramírez PAC Estimated Blood Loss 250 Findings Consistent with Post-Op Diagnosis Specimens Right femoral head Complications none Disposition Disposition: Recovery Room Indications 3-year-old male who is been dealing with severe increase of right hip pain. X- rays and MRI were diagnostic for avascular necrosis of the right hip. After failing conservative treatment, he elected to proceed with a right total hip arthroplasty. Description of Procedure Implants used Biomet Taperloc total hip arthroplasty system with a size 13 standard Taperloc stem, a 52 mm G7 cup with a 25mm screw, an E1 polyethylene liner, a 36 mm ceramic head with a 0 neck. Patient arrived at the hospital for the above procedure. They were seen in the preoperative holding area and the operative extremity was identified and signed. They were given a spinal anesthetic. They were given a preoperative antibiotic and TXA. They were taken back To the operating room and laid on the table in the supine position. The leg was brought out through a Puristst leg positioner. The hip was then prepped and draped in sterile fashion. A timeout was done and the patient in upper extremities properly identified. An anterior approach was used. Dissection was taken down through the fascia and the tensor muscle belly was retracted laterally and the rectus was retracted medially. The circumflex vessels were identified and ligated. The capsule was then incised and tagged for later repair. The femoral neck was then cut and the femoral head was removed. The acetabulum was exposed. Time was spent doing a complete circumferential labral release. Sequential reaming of the acetabulum up to a size 51 reamer was done. Final reamings were done under fluoroscopy to ensure appropriate version. A Biomet 52 mm G7 cup was then impacted into place. A single 25 mm screw was placed. The E1 polyethylene liner was then snapped into place. Surrounding soft tissues were then injected with 100 cc of an orthopedic pain control cocktail. The proximal femur was then exposed. Sequential broaching up to a size 13 broac h was done. Off that broach a size 36 head with a 0 neck was trialed. The hip was reduced and fluoroscopic images showed anatomic alignment of the implants in acceptable length. The broach was removed. The final size 13 standard offset Taperloc stem was then impacted into place. A ceramic 36 mm head with a 0 neck was then impacted into place in the hip was reduced. Final fluoroscopic images showed anatomic reduction of the hip. The capsule was then closed with #1 Vicryl suture. A dilute betadyne lavage was then done for 3 minutes. The joint was then irrigated with normal saline solution. The fascia was closed with #1 PDS suture. Skin was closed with 2-0 Vicryl, jodi, and a Shonna VAC dressing. The patient was then transferred to a hospital bed and taken to the post anesthesia care unit in stable condition. They tolerated the procedure well. I attest to the content of the Intraoperative Record and any orders documented therein. Any exceptions are noted below.
--- NOTE | 2018-12-28 12:00 | Fluoroscopy Report ---
FL hip RT 1V CLINICAL HISTORY: RT ANTERIOR HIP ARTHROPLASTY COMPARISON STUDY: 09/19/2018 FLUOROSCOPY TIME: 16 seconds. NUMBER OF FLUOROSCOPIC IMAGES: 1 FINDINGS: The single intraoperative fluoroscopic spot image reveals postsurgical changes of a total r ight hip arthroplasty. No dislocation is evident. IMPRESSION: Intraoperative for scopic spot image demonstrating a total right hip arthroplasty Electronically signed by: Yobani Wolff M.D. 12/28/2018 11:59 AM
--- NOTE | 2018-12-28 12:33 | Anesthesiology Progress Note ---
Date of Service December 28, 2018 Anesthesia Post Procedure Vital Signs Vital Signs: Temp Pulse Pulse Resp BP Pulse Ox 12/28/18 12:12 36.7 C 87 23 106/63 99 12/28/18 07:39 36.9 C 58 L 20 119/70 97 Pain Intensity Right Hip: Pain Intensity: 0 Notes Mental Status: alert / awake / arousable Patient Amnestic to Procedure: Yes Nausea / Vomiting: adequately controlled Pain: adequately controlled Airway Patency, RR, SpO2: stable & adequate BP & HR: stable & adequate Hydration State: stable & adequate Anesthetic Complications: no major complications apparent
--- NOTE | 2018-12-28 12:49 | XRay Report ---
XR hip 1V RT w pelvis HISTORY: 53 years-old Male IN PACU - A/P PELVIS and LATERAL HIP right hip total joint arthroplasty COMPARISON: Fluoroscopic images of the right hip of same day TECHNIQUE: AP view of the pelvis with crosstable lateral view of the right hip FINDINGS: Right hip total joint arthroplasty demonstrates satisfactory alignment. Surgical drainage catheter no kaushik. Lateral skin jodi are noted with expected postsurgical soft tissue swelling and deep tissue a ir. Mild osteoarthritis about the left femoral acetabular joint. No acute fracture, avascular necrosi s or retained foreign body. IMPRESSION: Right hip total joint arthroplasty demonstrates satisfactory alignment. The above report was generated using voice recognition software. It may contain grammatical, syntax o r spelling errors. Electronically signed by: Alfred Jesus M.D. 12/28/2018 12:48 PM
[2018-12-28] MEDS ORDERED: NALOXONE HCL 0.4 MG/1 ML VIAL/CARP IV PRN (13:25)
[2018-12-28] MEDS ORDERED: MAGNESIUM HYDROXIDE SUSP 30 ML UDC PO PRN (13:25)
[2018-12-28] MEDS ORDERED: METOCLOPRAMIDE HCL INJ 5 MG/ML 2 ML VIAL IV PRN (13:25)
[2018-12-28] MEDS ORDERED: SODIUM CHLORIDE 0.9% 1000ML 1,000 ML IV SCH (13:25)
[2018-12-28] MEDS ORDERED: BISACODYL 10 MG SUPP PR PRN (13:25)
[2018-12-28] MEDS ORDERED: HYDROmorphone INJ 0.5 MG/0.5 ML SYR IV PRN (13:25)
[2018-12-28] MEDS: OXYCODONE HCL IR 5 MG TAB (IMMEDIATE RELEASE) PO PRN ×3 (14:36→22:24)
[2018-12-28] MEDS: KETOROLAC 30 MG/ML VIAL IV SCH ×2 (16:49→22:23)
[2018-12-28] MEDS: ACETAMINOPHEN 500 MG TAB PO SCH (16:51)
[2018-12-28] MEDS: CEFAZOLIN 2000MG 2,000 MG/15 ML SYR IV SCH (18:40)
[2018-12-28] MEDS: ASPIRIN 81 MG ECTAB PO SCH (20:45)
[2018-12-28] MEDS: DOCUSATE SODIUM 100 MG CAP PO SCH (20:45)
[2018-12-28] MEDS ORDERED: SENNA 8.6 MG TAB PO SCH (21:00)
[2018-12-29] MEDS: ACETAMINOPHEN 500 MG TAB PO SCH ×2 (00:04→08:42)
[2018-12-29] MEDS: CEFAZOLIN 2000MG 2,000 MG/15 ML SYR IV SCH (02:50)
[2018-12-29] MEDS: KETOROLAC 30 MG/ML VIAL IV SCH ×2 (02:50→10:15)
[2018-12-29] MEDS: OXYCODONE HCL IR 5 MG TAB (IMMEDIATE RELEASE) PO PRN ×3 (02:50→11:07)
[2018-12-29 06:10] LABS: Basophils # (auto) 0.01 K/uL (0-0.2); Basophils % (auto) 0.1 %; Eosinophils # (auto) 0.02 K/uL (0-0.5); Eosinophils % (auto) 0.1 %; Hematocrit (blood only) 38.6 % (42-52); Hemoglobin 12.7 g/dL (14.0-18.0); Immature Granulocytes # (auto) 0.06 K/uL (0.00-0.02); Immature Granulocytes % (auto) 0.4 %; Lymphocytes % (auto) 10.6 %; Mean Corpuscular Hgb Conc 32.9 g/dL (32-36); Mean Platelet Volume 10.2 fL (7.4-10.4); Monocytes # (auto) 1.72 K/uL (0.11-0.59); Monocytes % (auto) 10.7 %; Neutrophils % (auto) 78.1 %; Platelet Count 208 K/uL (130-400); RDW Coefficient of Variation 13.4 % (11.5-14.5); RDW Standard Deviation 45.6 fL (36.4-46.3); Red Blood Count 4.15 M/uL (4.7-6.1); White Blood Count 16.11 K/uL (4.8-10.8)
[2018-12-29 06:35] LABS: Calcium 8.3 mg/dl (8.5-10.1); Est GFR (African American) 113.7; Est GFR (Non-African American) 98.1; Potassium 4.2 mmol/L (3.5-5.1)
--- NOTE | 2018-12-29 08:26 | Orthopedic Progress Note ---
Date of Service December 29, 2018 Flakito Nuñez was seen and examined at bedside this morning. Overall is doing very well. Is not having to hip. He is Faustino been up and ambulating around the nurses station. He has no complaints. Physical Exam Vital Signs (Past 24 Hours): Last Vital Signs Temp 36.4 C L 12/29/18 07:04 Pulse 61 12/29/18 07:04 Resp 16 12/29/18 07:04 BP 117/72 12/29/18 07:04 Pulse Ox 98 12/29/18 07:04 Musculoskeletal: On physical examination of the right hip, the Shonna VAC dressing is to suction. His leg lengths are equal. He is active dorsi flexion and plantarflexion of his right ankle. He still is a little bit of numbness in his quad region but is able to activate his quad. Results & Data Laboratory Results H & H 11/27/18 12/29/18 Range/Units 11:15 05:37 Hgb 14.6 12.7 L (14.0-18.0) g/dL Hct 42.8 38.6 L (42-52) % Coagulation 11/27/18 Range/Units 11:15 INR 1.0 (0.9-1.1) Diagnostic Findings Postoperative x-rays of the right hip show the prosthesis to be in anatomic alignment without any evidence of fracture, dislocation, or loosening.
--- NOTE | 2018-12-29 08:27 | Discharge Summary ---
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 He is been having a 6-month history of right hip and groin pain. Sometimes it so bad that he can barely walk. X-rays were suggestive of avascular necrosis. An MRI confirmed the diagnosis. After failing conservative treatment, he elected to proceed with a right total hip arthroplasty. Specialty Data Orthopedic H & H 11/27/18 12/29/18 Range/Units 11:15 05:37 Hgb 14.6 12.7 L (14.0-18.0) g/dL Hct 42.8 38.6 L (42-52) % Coagulation 11/27/18 Range/Units 11:15 INR 1.0 (0.9-1.1) Discharge Data Consultations 12/29/18 08:00 Consult Case Management - Discharge Planning Routine Procedures Performed Operation Date: 12/28/18 09:50 Actual Procedures p Right Anterior Total Hip Arthroplasty(Right) - Alberto Alba DO Hospital Course (1) Avascular necrosis of bone of right hip: On December 28, 2018 Joaquin arrived at [facility] and underwent a right anterior total hip arthroplasty without complication. He had a spinal anesthetic. Postoperatively he was started on aspirin for DVT prophylaxis and discharged to general orthopedic floors. His hospital course is uneventful. On postop day #1 his H&H was stable and his pain was well controlled. He was able to participate well with physical therapy. He was then discharged home with oxycodone for pain and aspirin for DVT prophylaxis. He will get energy physical therapy at home. He will follow-up with orthopedics in 2 weeks. Discharge Instructions Home Medications Medication Instructions Recorded Confirmed diclofenac sodium 75 mg PO BID 11/21/18 12/28/18 hydrocodone-acetaminophen 1 tab PO Q6H PRN 11/21/18 12/28/18 omeprazole 20 mg PO QAM 11/21/18 12/28/18 ranitidine HCl 150 mg PO BID 11/21/18 12/28/18 Previous Rx's Medication Instructions Recorded aspirin [Ecotrin Low Strength] 81 mg PO BID #84 tab 12/29/18 oxycodone 5 - 10 mg PO Q4H PRN #40 tab 12/29/18
[2018-12-29] MEDS: DOCUSATE SODIUM 100 MG CAP PO SCH (08:42)
[2018-12-29] MEDS: ASPIRIN 81 MG ECTAB PO SCH (08:44)
[2018-12-29] MEDS ORDERED: PANTOprazole 40 MG TAB PO SCH (09:00)
[2018-12-29] MEDS ORDERED: MULTIVITAMIN TAB PO SCH (09:00)
--- NOTE | 2018-12-29 12:58 | Anesthesiology Progress Note ---
Date of Service December 29, 2018 Anesthesia Post Procedure Vital Signs Vital Signs: Temp Pulse Pulse Resp BP Pulse Ox 12/29/18 10:45 36.4 C L 61 16 117/72 98 12/29/18 07:04 36.4 C L 61 16 117/72 98 12/29/18 03:04 36.6 C 59 L 16 119/70 96 12/28/18 22:53 36.7 C 59 L 16 114/62 97 12/28/18 19:55 36.7 C 57 L 18 119/68 98 12/28/18 16:12 36.3 C L 63 18 132/81 99 12/28/18 15:10 36.5 C 59 L 16 104/65 100 12/28/18 14:10 36.4 C L 60 18 106/67 100 12/28/18 13:45 60 18 109/68 100 12/28/18 13:10 36.4 C L 58 L 18 110/66 100 12/28/18 13:00 56 L 100 Pain Intensity Right Hip: Pain Intensity: 5 Notes Mental Status: alert / awake / arousable and participated in evaluation Patient Amnestic to Procedure: Yes Nausea / Vomiting: adequately controlled Pain: adequately controlled Airway Patency, RR, SpO2: stable & adequate BP & HR: stable & adequate Hydration State: stable & adequate Neuraxial Anesthesia: was administered and sensory block resolved Anesthetic Complications: no major complications apparent and Pt Satisfied with anesthetic care
== END 2018-12-29 13:03 | disposition home health service (06) | DRG 470 ==
LOC: ASU 07:20 → 3E 12:17